=== PATIENT | male | born 1985 | race Caucasian/White ===

== ENCOUNTER 2017-05-15 09:23 | Emergency (ER) | payer BC ==
[2017-05-15] MEDS ORDERED: SUMAtriptan SUCCINATE 6 MG/0.5 ML VIAL SC ONE ×2 (09:49→09:53)
[2017-05-15] MEDS ORDERED: PROMETHAZINE HCL 50 MG/ML AMPUL IM ONE ×2 (10:24→10:28)
[2017-05-15] MEDS ORDERED: BUTORPHANOL TARTRATE 2 MG/ML VIAL IM ONE (10:24)
[2017-05-15] MEDS ORDERED: BUTORPHANOL TARTRATE 2 MG/ML VIAL ONE (10:28)
--- NOTE | 2017-05-15 10:33 | ERNOTE ---
Headache ER HPI - Narrative Date of Service: 05/15/17 - General Presenting Symptoms: headache Time Seen by Provider: 05/15/17 10:11 Source: patient, RN notes reviewed, old records Exam Limitations: no limitations - Immun/Allergies/Home Medications Immunizations: IMMUNIZATION HX Immunizations Up to Date Yes History of Influenza Vaccine Yes Hx Pneumococcal Vaccination No Allergies/Adverse Reactions: Allergies No Known Allergies Allergy (Verified 05/15/17 09:46) Home Medications: HOME MEDICATIONS Diazepam [Valium] 5 mg PO BID PRN 01/10/16 [Last Taken Unknown] Nortriptyline HCl [Pamelor] 150 mg PO HS 05/15/17 [Last Taken Unknown] - Pain Pain Score: 10 - History of Present Illness Narrative: John is a 31 year old male sent to the ED from his PCP's office for a cluster headache. He has dealt with the headaches for several years, but has not had one for approximately 2 years since he started taking nortriptyline prophylactically. He typically only has the headaches in January, but began having them again a few days ago. He was seeing his doctor for the headaches this morning when he started experiencing "shadowing" in his vision and then began having pain. In the past, he has received oxygen, Imitrex, Stadol and Phenergan with good results. Date (Duration): 05/15/17 Time (Timing): 08:30 Activity at onset: other Timing of Headache: abrupt, still present Context Headache: Present: new onset. Absent: sick contact, recent head injury < 24 hrs ago, recent head injury > 24 hrs, recent travel-outside [place] Quality: Present: stabbing Severity Maximum: Present: severe Severity-Currently: Present: severe Headache frequency: Present: chronic headaches, similar to previous headache Prior Treament: Reports: recently seen, treated by physician, similar symptoms before Review of Systems - Review of Systems Constitutional: Absent: recent illness, fever, chills EYE: Present: vision changes, tearing. Absent: eye pain, eye discharge ENT: Present: nasal drainage. Absent: ear pain, nose congestion, sore throat Respiratory: Absent: shortness of breath, cough Cardiology: Present: no symptoms reported Gastrointestinal/Abdominal: Absent: nausea, vomiting Genitourinary: Present: no symptoms reported Musculoskeletal: Absent: muscle pain, neck pain Skin: Absent: rash, lesions Neurological: Present: headache. Absent: dizziness/light-headedness, weakness, numbness, tingling Endocrine: Present: no symptoms reported Hematologic/Lymphatic: Present: no symptoms reported Psych: Absent: anxiety, depressed - Patient's Past Medical History Patient History - Medical: ADHD, Headache - Cluster Patient History - Cardiac/Respiratory: No pertinent hx Patient History - Cancer: No Hx of Cancer Patient History - Surgical Procedures: Noncontributory, Other Patient History - Other: None - Family History Grandmother-Maternal Family History - Medical: Family History - Cardiac/Respiratory: No pertinent hx Grandfather-Maternal Family History - Medical: Family History - Cardiac/Respiratory: No pertinent hx - Social History Living Situations: home Abuse History: No History of abuse Psych History: No pertinent hx Smoking Status: Never smoker Alcohol Use: none Drug Use: none - Immunizations Immunizations Up to Date: Yes Hx Pneumococcal Vaccination: No History of Influenza Vaccine: Yes Physical Exam - Physical Exam General Appearance: Present: wd/wn, alert, mild distress Neck: Present: normal inspection, nontender, supple, full range of motion Respiratory: Present: no respiratory distress, normal breath sounds, no accessory muscle use, lungs clear Cardiovascular/Chest: Present: regular rate, rhythm, no murmur Extremity Exam: Present: normal inspection, normal range of motion, no edema Neurological Exam: Present: alert, oriented, normal mood/affect, no motor/ sensory deficits Skin Exam: Present: normal color, warm/dry ED Progress - Vital Signs Patient's Vital Signs:: I have reviewed the patient's vital signs. Vital Signs: Vital Signs 05/15/17 09:41 Temperature 37.1 C Pulse Rate 104 H Respiratory 16 Rate Blood Pressure 129/85 O2 Sat by Pulse 97 Oximetry - Progress/Reassessment Chief Complaint: Headache Progress:: Pain free at discharge Progress Note-Subjective: 05/15/17 10:32 Receiving oxygen and has had Imitrex on initial exam with some improvement. Phenergan and Stadol ordered. Departure Clinical Impression: Cluster headache Qualifiers: Headache chronicity pattern: episodic headache Intractability: not intractable Qualified Code(s): G44.019 - Episodic cluster headache, not intractable - Departure Disposition: Home Follow Up Needed Condition: Stable Instructions: Cluster Headache Additional Instructions: Continue your current medications Follow up with your doctor as scheduled or return to the ED if symptoms worsen Referrals: Garcia Painter MD [Primary Care Provider] -
[2017-05-15 10:36] VITALS: BP 120/75
== END 2017-05-15 11:14 | disposition home or self-care (01) ==
LOC: ER 09:23
DX: G44.019 Episodic cluster headache, not intractable (principal)

== ENCOUNTER 2017-05-17 12:06 | Emergency (ER) | payer BC ==
[2017-05-17] MEDS ORDERED: SUMAtriptan SUCCINATE 6 MG/0.5 ML VIAL SC ONE ×2 (13:27→13:33)
[2017-05-17] MEDS ORDERED: PROMETHAZINE HCL 50 MG/ML AMPUL IM ONE ×2 (13:27→13:33)
[2017-05-17] MEDS ORDERED: BUTORPHANOL TARTRATE 2 MG/ML VIAL IM ONE (13:27)
--- NOTE | 2017-05-17 13:31 | ERNOTE ---
Headache ER HPI - General Presenting Symptoms: headache Time Seen by Provider: 05/17/17 13:25 Source: patient - Immun/Allergies/Home Medications Immunizations: IMMUNIZATION HX Immunizations Up to Date Yes History of Influenza Vaccine Yes Hx Pneumococcal Vaccination No Allergies/Adverse Reactions: Allergies No Known Allergies Allergy (Verified 05/17/17 12:18) Home Medications: HOME MEDICATIONS Nortriptyline HCl [Pamelor] 150 mg PO HS 05/15/17 [Last Taken Unknown] - History of Present Illness Narrative: Patient has a long-standing history of cluster migraine headaches. Has been under the care of neurology at both the [facility] and [place] and it has been found that a combination of Stadol, Phenergan and Imitrex will usually not the headache out. He has been on verapamil in the past and after a period of time it stop working. Patient is now on amitriptyline cycling and has been doing reasonably well as this is his first breakthrough headache in several months. He describes the pain as moderate to severe in intensity and has nausea and photophobia. Timing of Headache: gradual, constant Quality: Present: pressure, throbbing Severity Maximum: Present: severe Severity-Currently: Present: severe Headache frequency: Present: chronic headaches Associated Symptoms: Reports: nausea Exacerbated by:: Reports: light Review of Systems - Review of Systems Constitutional: Present: See HPI EYE: Present: no symptoms reported ENT: Present: no symptoms reported Respiratory: Present: no symptoms reported Cardiology: Present: no symptoms reported Gastrointestinal/Abdominal: Present: no symptoms reported Genitourinary: Present: no symptoms reported Musculoskeletal: Present: no symptoms reported Skin: Present: no symptoms reported Neurological: Present: See HPI Endocrine: Present: no symptoms reported Hematologic/Lymphatic: Present: no symptoms reported Psych: Present: no symptoms reported - Patient's Past Medical History Patient History - Medical: ADHD, Headache - cluster Patient History - Cardiac/Respiratory: No pertinent hx Patient History - Cancer: No Hx of Cancer Patient History - Surgical Procedures: Noncontributory, Other Patient History - Other: None - Family History Grandmother-Maternal Family History - Medical: Family History - Cardiac/Respiratory: No pertinent hx Grandfather-Maternal Family History - Medical: Family History - Cardiac/Respiratory: No pertinent hx - Social History Living Situations: spouse Abuse History: No History of abuse Psych History: No pertinent hx Smoking Status: Never smoker Alcohol Use: none Drug Use: none - Immunizations Immunizations Up to Date: Yes Hx Pneumococcal Vaccination: No History of Influenza Vaccine: Yes Physical Exam - Physical Exam General Appearance: Present: wd/wn, alert, moderate distress, other - other than the photophobia the remainder of the examination is unremarkable Eye Exam: Normal inspection: bilateral, PERRL: bilateral Ears, Nose, Throat: Present: normal ENT inspection, H, normal pharynx Neck: Present: normal inspection, nontender Respiratory: Present: no respiratory distress, normal breath sounds, no accessory muscle use, chest nontender, lungs clear Cardiovascular/Chest: Present: regular rate, rhythm, no murmur, normal peripheral pulses Gastrointestinal/Abdominal: Present: normal bowel sounds, nontender, nondistended, soft, no organomegaly Rectal Exam: Present: deferred Back Exam: Present: normal inspection, normal range of motion Extremity Exam: Present: normal inspection, non-tender, no edema, normal range of motion Neurological Exam: Present: alert, oriented, normal mood/affect Skin Exam: Present: normal color, warm/dry Lymphatic Exam: Present: no adenopathy ED Progress - Vital Signs Patient's Vital Signs:: I have reviewed the patient's vital signs. Vital Signs: Vital Signs 05/17/17 12:14 Temperature 36.9 C Pulse Rate 101 H Respiratory 18 Rate Blood Pressure 135/71 O2 Sat by Pulse 96 Oximetry - Progress/Reassessment Chief Complaint: Headache Progress:: Improved Plan - Plan Plan: Patient showed substantial improvement with his typical cocktail and is ready to go home. Departure Clinical Impression: Cluster headache Qualifiers: Headache chronicity pattern: chronic headache Intractability: not intractable Qualified Code(s): G44.029 - Chronic cluster headache, not intractable - Departure Disposition: Home self-care Condition: Good Instructions: Cluster Headache, [id number]
[2017-05-17] MEDS ORDERED: BUTORPHANOL TARTRATE 2 MG/ML VIAL ONE (13:33)
[2017-05-17 15:58] VITALS: BP 134/79
== END 2017-05-17 14:55 | disposition home or self-care (01) ==
LOC: ER 12:06
DX: G44.029 Chronic cluster headache, not intractable (principal)